=== PATIENT | male | born 1970 | race Caucasian/White ===

== ENCOUNTER 2021-12-21 10:11 | Day surgery (SDC) | payer OTHER, SELFPAY ==
[~2021-12-21] VITALS: Ht 167.6 cm; Wt 88.0 kg
[2021-12-21] MEDS ORDERED: LIDOCAINE 2% 100 MG/5 ML UJET TP ONE (12:11)
[2021-12-21] MEDS ORDERED: fentaNYL citrate 0.05 MG/ML VIAL ONE (12:36)
[2021-12-21] MEDS ORDERED: LABETALOL 100 MG/20 ML VIAL ONE (13:34)
[2021-12-21] MEDS ORDERED: fentaNYL citrate 0.05 MG/ML VIAL IVP ONE (13:50)
[2021-12-21] MEDS ORDERED: LABETALOL 100 MG/20 ML VIAL IVP ONE (13:50)
== END 2021-12-21 14:05 | disposition home or self-care (01) ==
LOC: MMU 10:11 → MDS 10:11
PROVIDERS: ATTEND Internal Medicine Gastroenterology
DX: Z12.11 Encounter for screening for malignant neoplasm of colon (principal); D12.4 Benign neoplasm of descending colon; E11.9 Type 2 diabetes mellitus without complications; I10 Essential (primary) hypertension; Z20.822 Contact with and (suspected) exposure to COVID-19; Z79.899 Other long term (current) drug therapy
CPT/HCPCS: 45385; 87426; J3010; J3490